=== PATIENT | female | born 1955 ===

== ENCOUNTER 2022-03-11 05:30 | Observation (INO) ==
[2022-03-11] MEDS ORDERED: ceFAZolin 2 GM in NS PREMIX 2 GM/100 ML BAG IVPB ONE (05:59)
[2022-03-11] MEDS ORDERED: Famotidine IV 10 MG/ML 2 ml VIAL (20 mg) ONE (05:59)
[2022-03-11] MEDS ORDERED: Famotidine IV 10 MG/ML 2 ml VIAL (20 mg) IV ONE (06:00)
[2022-03-11] MEDS ORDERED: Buffered Lidocaine 1% SYRIN 1 ml INTRADERM ONE (06:00)
[2022-03-11] MEDS ORDERED: Lactated Ringers 1000 ml BAG 1,000 ML IV SCH ×2 (06:00→20:00)
[2022-03-11] MEDS ORDERED: Midazolam 2 mg/2 ml VIAL 1 mg/ml 2 ml VIAL (2 mg) ONE (07:09)
[2022-03-11] MEDS ORDERED: fentaNYL 100 mcg/2 ml 50 MCG/ML VIAL ONE ×3 (07:09→21:43)
[2022-03-11] MEDS ORDERED: Lidocaine 2% PF 5 ML VIAL ONE ×3 (07:10→19:51)
[2022-03-11] MEDS ORDERED: ROPIVACAINE 5 MG/ML 30 ML BTL (0.5%) ONE (07:10)
[2022-03-11] MEDS ORDERED: Vancomycin 1,000 MG VIAL ONE ×2 (07:44→18:58)
[2022-03-11] MEDS ORDERED: Propofol 10 MG/ML 20 ML BTL ONE ×2 (07:48→19:52)
[2022-03-11] MEDS ORDERED: Rocuronium 50 mg VIAL 10 mg/ml 5 ml VIAL (50 mg) ONE ×2 (07:48→19:52)
[2022-03-11] MEDS ORDERED: Dexamethasone IV 4 MG/ML VIAL 1 ml VIAL ONE (07:48)
[2022-03-11] MEDS ORDERED: HYDROmorphone 1 MG/1 ML SYRINGE IV PRN (09:42)
[2022-03-11] MEDS ORDERED: Scopolamine 1 mg/72hr PATCH TRANSDERM PRN (09:42)
[2022-03-11] MEDS ORDERED: Ondansetron 4 mg VIAL 2 MG/ML 2 ml VIAL IV PRN ×2 (09:42→19:29)
[2022-03-11] MEDS ORDERED: Naloxone 0.4 mg VIAL 0.4 mg/ml 1 ml VIAL IV PRN (09:42)
[2022-03-11] MEDS ORDERED: ceFAZolin 2 GM PREMIX 2 GM/50 ML BAG ONE (17:13)
[2022-03-11] MEDS ORDERED: Midazolam 5 mg/5 ml VIAL 1 mg/ml 5 ml VIAL (5 mg) ONE (19:24)
[2022-03-11] MEDS ORDERED: Bupivacaine 0.5% SDV PF 30ML VIAL ONE (19:24)
[2022-03-11] MEDS ORDERED: Magnesium Hydroxide LIQ 30 ML UDC PO PRN (19:29)
[2022-03-11] MEDS ORDERED: Ondansetron ODT 4 mg TAB 4 MG TAB PO PRN (19:29)
[2022-03-11] MEDS ORDERED: Morphine 2 MG/ML SYRINGE IV PRN (19:29)
[2022-03-11] MEDS ORDERED: Lactulose 30 ml UDC PO PRN (19:29)
[2022-03-11] MEDS ORDERED: ceFAZolin 1 GM ADVAN 1 GM in NS 0.9% 50 ML 50 ML IVPB SCH (20:00)
[2022-03-11] MEDS ORDERED: Labetalol IV 5 MG/ML 20 ml VIAL ONE (20:11)
[2022-03-11] MEDS ORDERED: Phenylephrine 40 mcg/mL 10mL (400mcg) SYRINGE ONE (20:16)
[2022-03-11] MEDS ORDERED: Acetaminophen IV 1 GM/100ML 1,000 MG/100 ML BAG IV ONE (21:43)
[2022-03-11] MEDS: fentaNYL 100 mcg/2 ml 50 MCG/ML VIAL IV PRN ×4 (21:47→22:00)
[2022-03-12] MEDS: Magnesium Hydroxide LIQ 30 ML UDC PO SCH ×2 (00:14→09:00)
[2022-03-12 08:42] VITALS: BP 155/103
[2022-03-12] MEDS ORDERED: Vitamin THERAPEUTIC TAB PO SCH (09:00)
[2022-03-12] MEDS ORDERED: Enoxaparin 40 MG/0.4 ML SYR SUBCUT SCH (12:00)
== END 2022-03-12 15:15 | disposition home or self-care (01) ==
LOC: SSU 05:30 → OR 05:30
PROVIDERS: ADMIT Orthopaedic Surgery; ATTEND Orthopaedic Surgery

== ENCOUNTER 2022-03-13 11:24 | Inpatient (IN) ==
[~2022-03-13 11:24] MED LIST: Propofol 10 MG/ML 20 ML BTL ONE; Rocuronium 50 mg VIAL 10 mg/ml 5 ml VIAL (50 mg) ONE
[2022-03-13] MEDS ORDERED: fentaNYL 250 mcg/5 ml 50 MCG/ML 5 ml VIAL (250 MCG) ONE (12:54)
[2022-03-13] MEDS ORDERED: Midazolam 2 mg/2 ml VIAL 1 mg/ml 2 ml VIAL (2 mg) ONE (12:54)
[2022-03-13] MEDS ORDERED: ROPIVACAINE 5 MG/ML 30 ML BTL (0.5%) ONE (12:54)
[2022-03-13] MEDS ORDERED: hydrALAZINE 20 mg/ml 1 ML Vial IV ONE (12:54)
[2022-03-13] MEDS ORDERED: Dexamethasone IV 4 MG/ML VIAL 1 ml VIAL ONE (13:14)
[2022-03-13] MEDS ORDERED: Lidocaine 2% PF 5 ML VIAL ONE (13:14)
[2022-03-13] MEDS ORDERED: Ondansetron 4 mg VIAL 2 MG/ML 2 ml VIAL ONE ×2 (13:14→19:27)
[2022-03-13] MEDS ORDERED: ceFAZolin 2 GM in NS PREMIX 2 GM/100 ML BAG IVPB ONE (14:17)
[2022-03-13] MEDS ORDERED: Vancomycin 1,000 MG VIAL ONE (14:20)
[2022-03-13] MEDS ORDERED: Artificial Tear OPHTH.OINT 3.5 GM ONE (14:35)
[2022-03-13] MEDS ORDERED: Glycopyrrolate IV 0.2 MG/ML 1 ML VIAL ONE (15:08)
[2022-03-13] MEDS ORDERED: Phenylephrine 40 mcg/mL 10mL (400mcg) SYRINGE ONE (15:29)
[2022-03-13] MEDS ORDERED: Phenylephrine IV 10 MG/ML 1 ml VIAL ONE (15:29)
[2022-03-13] MEDS ORDERED: Rocuronium 50 mg VIAL 10 mg/ml 5 ml VIAL (50 mg) ONE ×2 (15:32→16:07)
[2022-03-13] MEDS ORDERED: HYDROmorphone 1 MG/1 ML SYRINGE IV PRN (16:11)
[2022-03-13] MEDS ORDERED: Ondansetron 4 mg VIAL 2 MG/ML 2 ml VIAL IV PRN ×2 (16:11→19:02)
[2022-03-13] MEDS ORDERED: fentaNYL 100 mcg/2 ml 50 MCG/ML VIAL IV PRN (16:11)
[2022-03-13] MEDS ORDERED: Naloxone 0.4 mg VIAL 0.4 mg/ml 1 ml VIAL IV PRN (16:11)
[2022-03-13] MEDS ORDERED: Acetaminophen IV 1 GM/100ML 1,000 MG/100 ML BAG IV PRN (16:11)
[2022-03-13] MEDS ORDERED: Lactulose 30 ml UDC PO PRN (19:02)
[2022-03-13] MEDS ORDERED: Magnesium Hydroxide LIQ 30 ML UDC PO PRN (19:02)
[2022-03-13] MEDS ORDERED: Morphine 2 MG/ML SYRINGE IV PRN (19:02)
[2022-03-13] MEDS ORDERED: Ondansetron ODT 4 mg TAB 4 MG TAB PO PRN (19:02)
[2022-03-13] MEDS ORDERED: Lactated Ringers 1000 ml BAG 1,000 ML IV SCH (20:00)
[2022-03-13] MEDS: Magnesium Hydroxide LIQ 30 ML UDC PO SCH ×2 (23:42→23:43)
[2022-03-14] MEDS: ceFAZolin 1 GM ADVAN 1 GM in NS 0.9% 50 ML 50 ML IVPB SCH ×3 (01:23→16:44)
[2022-03-14] MEDS: Vitamin THERAPEUTIC TAB PO SCH (08:03)
[2022-03-14] MEDS: Heparin 5000 UNITS/ML 1 mL VIAL SUBCUT SCH ×2 (08:04→21:15)
[2022-03-14] MEDS: Magnesium Hydroxide LIQ 30 ML UDC PO SCH ×2 (08:05→21:16)
[2022-03-14] MEDS ORDERED: Vitamin THERAPEUTIC TAB PO SCH (09:00)
[2022-03-15] MEDS ORDERED: Calcium Carb (TUMS) 500 mg CHEW TAB PO PRN (03:50)
[2022-03-15 07:11] VITALS: BP 116/65
[2022-03-15] MEDS: Vitamin THERAPEUTIC TAB PO SCH (09:51)
[2022-03-15] MEDS: Magnesium Hydroxide LIQ 30 ML UDC PO SCH (09:52)
[2022-03-15] MEDS: Heparin 5000 UNITS/ML 1 mL VIAL SUBCUT SCH (09:52)
== END 2022-03-15 13:30 | disposition home or self-care (01) | DRG 483 ==
LOC: OR 11:24 → SSU 22:00
PROVIDERS: ADMIT Physician Assistant Surgical; ATTEND Orthopaedic Surgery